=== PATIENT | female | born 1960 | race Caucasian/White ===

== ENCOUNTER 2022-05-15 18:08 | Emergency (ER) | payer OTHER ==
[2022-05-15] MEDS ORDERED: IBUP-2028 MT (20:12)
== END 2022-05-15 18:34 | disposition left against medical advice (07) ==
LOC: ER 18:08
DX: Z53.21 Procedure and treatment not carried out due to patient leaving prior to being seen by health care provider (principal)

== ENCOUNTER 2022-05-15 18:54 | Emergency (ER) | payer OTHER ==
[~2022-05-15] VITALS: Ht 149.9 cm; Wt 91.0 kg
[2022-05-15 18:59] VITALS: BP 157/87
[2022-05-15] MEDS ORDERED: IBUP-2028 MT (20:12)
== END 2022-05-15 22:50 | disposition home or self-care (01) ==
LOC: ER 18:54
DX: S39.012A Strain of muscle, fascia and tendon of lower back, initial encounter (principal); V49.49XA Driver injured in collision with other motor vehicles in traffic accident, initial encounter; Y93.89 Activity, other specified; Y92.89 Other specified places as the place of occurrence of the external cause; Y99.8 Other external cause status
CPT/HCPCS: 71045; 72040; 72100; 99284